=== PATIENT | female | born 1955 | race Caucasian/White ===

== ENCOUNTER → 2025-04-12 09:32 | Outpatient (BNVA) | payer MEDICARE, SELFPAY | PROVIDERS: Visit Provider Nurse Practitioner Family | DX: F42.4 Excoriation (skin-picking) disorder (principal); L73.8 Other specified follicular disorders; L71.8 Other rosacea; L81.4 Other melanin hyperpigmentation; L82.1 Other seborrheic keratosis; D48.5 Neoplasm of uncertain behavior of skin; L57.0 Actinic keratosis; X32.XXXA Exposure to sunlight, initial encounter | CPT/HCPCS: 11102; 17000; 99203 ==